=== PATIENT | male | born 2000 | race Caucasian/White ===

== ENCOUNTER 2024-08-25 13:14 | Emergency (ER) | payer SELFPAY | END 2024-08-25 15:10 | disposition home or self-care (01) | LOC: CSHERS 13:14 | DX: S80.12XA Contusion of left lower leg, initial encounter (principal); W01.0XXA Fall on same level from slipping, tripping and stumbling without subsequent striking against object, initial encounter; Y99.0 Civilian activity done for income or pay | CPT/HCPCS: 99283 ==

== ENCOUNTER 2025-04-04 08:31 | Emergency (ER) | payer SELFPAY ==
[2025-04-04 09:32] LABS: #Basophils 0.03 10x3/uL (0.0-0.2); #Eosinophils 0.06 10x3/uL (0.0-0.5); #Monocytes 0.56 10x3/uL (0.0-1.1); #Neutrophils 3.79 10x3/uL (1.5-8.4); %Basophils 0.4 % (0.0-2.0); %Eosinophils 0.8 % (0.0-6.0); %Lymphocytes 37.4 % (18.0-47.0); %Monocytes 7.9 % (0.0-10.0); %Neutrophils 53.2 % (40.0-75.0); Hematocrit 48.2 % (38.8-50.0); Hemoglobin 16.3 g/dL (13.5-17.5); Mean Corpuscular Hemoglobin 27.8 pg (27.0-33.0); Mean Corpuscular Volume 82.3 fL (81.2-95.1); Platelet Count 232 10x3/uL (150-450); Red Blood Cell (RBC) Count 5.86 10x6/uL (4.32-5.72); White Blood Cell (WBC) Count 7.13 10x3/uL (3.5-10.5)
[2025-04-04 09:47] LABS: ALT (SGPT) 34 U/L (Less than 45); AST (SGOT) 16 U/L (11-34); Albumin 4.2 g/dL (3.1-4.5); Alkaline Phosphatase 75 U/L (40-110); Anion Gap 15 mmol/L (10-20); BUN (Urea Nitrogen) 15 mg/dL (8.9-20.6); Bilirubin, Total 0.4 mg/dL (0.3-1.2); Calc. Creatinine Clearance 0 mL/min (70-130); Calcium 9.6 mg/dL (7.8-10.44); Carbon Dioxide 28 mmol/L (22-29); Chloride 100 mmol/L (98-107); Globulin 4.1 g/dL (2.4-3.5); Glucose 95 mg/dL (70-105); Potassium 3.9 mmol/L (3.5-5.1); Sodium 139 mmol/L (136-145)
== END 2025-04-04 10:40 | disposition home or self-care (01) ==
LOC: CSHERS 08:31
DX: F41.0 Panic disorder [episodic paroxysmal anxiety] (principal); Z87.891 Personal history of nicotine dependence
CPT/HCPCS: 80053; 85025; 93005; 99283

== ENCOUNTER 2025-07-04 13:16 | Emergency (ER) | payer SELFPAY ==
[2025-07-04 16:17] LABS: ALT (SGPT) 30 U/L (Less than 45); AST (SGOT) 20 U/L (11-34); Albumin 4.6 g/dL (3.1-4.5); Alkaline Phosphatase 68 U/L (40-110); Anion Gap 18 mmol/L (10-20); BUN (Urea Nitrogen) 12 mg/dL (8.9-20.6); Bilirubin, Total 0.5 mg/dL (0.3-1.2); Calc. Creatinine Clearance 0 mL/min (70-130); Calcium 9.9 mg/dL (7.8-10.44); Carbon Dioxide 22 mmol/L (22-29); Globulin 3.6 g/dL (2.4-3.5); Glucose 82 mg/dL (70-105); Potassium 4.0 mmol/L (3.5-5.1); Sodium 141 mmol/L (136-145)
[2025-07-04 16:21] LABS: Chloride 105 mmol/L (98-107)
[2025-07-04 16:29] LABS: #Basophils 0.03 10x3/uL (0.0-0.2); #Eosinophils 0.04 10x3/uL (0.0-0.5); #Monocytes 0.60 10x3/uL (0.0-1.1); #Neutrophils 8.13 10x3/uL (1.5-8.4); %Basophils 0.3 % (0.0-2.0); %Eosinophils 0.4 % (0.0-6.0); %Lymphocytes 21.3 % (18.0-47.0); %Monocytes 5.4 % (0.0-10.0); %Neutrophils 72.4 % (40.0-75.0); Hematocrit 44.5 % (38.8-50.0); Hemoglobin 15.3 g/dL (13.5-17.5); Mean Corpuscular Hemoglobin 28.1 pg (27.0-33.0); Mean Corpuscular Volume 81.8 fL (81.2-95.1); Platelet Count 231 10x3/uL (150-450); Red Blood Cell (RBC) Count 5.44 10x6/uL (4.32-5.72); White Blood Cell (WBC) Count 11.21 10x3/uL (3.5-10.5)
[2025-07-04 16:35] LABS: Glucose, Urine (Dipstick) Normal (Negative); Leukocyte Negative (Negative); Protein, Urine (Dipstick) Negative (Neg-Trace); Specific Gravity, Urine 1.015 (1.005-1.030)
[2025-07-04 17:07] LABS: Bacteria/HPF 1+ HPF (None Seen); CAUTI Indications for Culture Alt mental st,lethar; RBC/HPF 0-3 HPF (0-3); WBC/HPF 0-3 HPF (0-3)
[2025-07-04 17:08] LABS: Mucous/LPF 1+ LPF (<2+)
[2025-07-04 17:10] LABS: Urine Culture Reflex No No
== END 2025-07-04 17:00 | disposition home or self-care (01) ==
LOC: CSHERS 13:16
DX: F43.9 Reaction to severe stress, unspecified (principal); R53.83 Other fatigue; Z55.6 Problems related to health literacy; Z87.891 Personal history of nicotine dependence
CPT/HCPCS: 36415; 80053; 81001; 84443; 85025; 99283